=== PATIENT | female | born 1985 | race Caucasian/White ===

== ENCOUNTER → 2023-02-03 08:04 | Outpatient (CLI) | payer OTHER, SELFPAY ==
[2023-02-03 15:29] LABS: Urine N gonorrhoeae NOT DETECTED
[2023-02-03 15:52] LABS: Urine Chlamydia NOT DETECTED
== END ==
PROVIDERS: Visit Provider Obstetrics & Gynecology
DX: Z34.81 Encounter for supervision of other normal pregnancy, first trimester (principal); Z3A.13 13 weeks gestation of pregnancy
CPT/HCPCS: 87491; 87591

== ENCOUNTER → 2023-02-03 08:28 | Outpatient (CLI) | payer OTHER, SELFPAY ==
[2023-02-03 09:53] LABS: Add Manual Diff / Slide Review NO; Basophils Absolute Auto 0 /uL (0-100); Basophils Percent Auto 0.4 % (0-2); Eosinophils Absolute Auto 100 /uL (0-450); Hematocrit 35.7 % (36-46); Hemoglobin 12.6 g/dL (12.0-16.0); Lymphocytes Absolute Auto 1700 /uL (1100-4500); Mean Corpuscular HGB Conc 35.2 % (30-36); Mean Corpuscular Hemoglobin 31.1 PG (26-34); Mean Corpuscular Volume 88.3 fL (80-100); Monocytes Absolute Auto 500 /uL (0-900); Monocytes Percent Auto 5.3 % (3-14); Neutrophils Absolute Auto 7700 /uL (1500-7000); Neutrophils Percent Auto 76.3 % (50-75); Platelet Count 233 X10^3/uL (150-400); Red Blood Cell Count 4.05 X10^6/uL (4.0-5.2); Red Cell Distribution Width 13.6 % (11.6-14.8); White Blood Cell Count 10.1 X10^3/uL (4.5-11.0)
[2023-02-03 10:48] LABS: Hepatitis B Surface Antigen NEGATIVE s/c (NEGATIVE)
[2023-02-03 10:49] LABS: Rubella Antibody IgG 42.9 IU/mL (>15)
[2023-02-03 11:01] LABS: HIV 1 & 2 Ab/Ag 4th Gen Combo NEGATIVE (NEGATIVE); Hep C Virus Ab w/Reflex Quant NEGATIVE s/c (NEGATIVE)
[2023-02-04 09:01] LABS: RPR Screen Non Reactive (Non Reactive)
[2023-02-04 13:39] LABS: Varicella IgG Antibody 1769 index (Immune >165)
== END ==
PROVIDERS: Specialist; Referring Provider Obstetrics & Gynecology; Visit Provider Obstetrics & Gynecology
DX: O09.511 Supervision of elderly primigravida, first trimester (principal); Z3A.13 13 weeks gestation of pregnancy
CPT/HCPCS: 36415; 80055; 86787; 86803; 86850; 86900; 86901; 87389; 87491; 87591

== ENCOUNTER → 2023-03-03 11:32 | Outpatient (CLI) | payer OTHER, SELFPAY ==
[2023-03-05 21:50] LABS: AFP Value 57.8 ng/mL (.); Gest Age on Col Date 17.9 weeks (.); Gestational Age EDD (.); Insulin Dep Diabetes No (.); OSBR Risk 1IN 3920 (.); Results Report (.); Test Results *Screen Negative* (.)
== END ==
PROVIDERS: Referring Provider Obstetrics & Gynecology; Visit Provider Obstetrics & Gynecology
DX: Z34.82 Encounter for supervision of other normal pregnancy, second trimester (principal); Z3A.17 17 weeks gestation of pregnancy
CPT/HCPCS: 36415; 82105

== ENCOUNTER → 2023-03-16 10:09 | Outpatient (CLI) | payer OTHER, SELFPAY ==
--- NOTE | 2023-03-16 10:10 | DI.US.S_ITS ---
PROCEDURE: US OB >= 14 WEEKS FETUS INDICATIONS: ANATOMY SCAN OUTSIDE/PRIOR DATING DATA: Last menstrual period (LMP): Unknown. LMP-based estimated date of delivery (PETE): Not available First dating scan (date and location): Performed at an outside location and not available at the time of this dictation Estimated date of delivery (PETE) from first dating scan: August 05, 2023. TECHNIQUE: Real-time scanning was performed of the fetus, with image documentation and biometric measurements. COMPARISON: None. FINDINGS: General: A single living intrauterine gestation is present. Presentation: Vertex. Placenta: Placental position is anterior. The edge of the placenta abuts the cervical os. Amniotic fluid index: 14.5 cm, normal range is 5-24 cm. Single deepest vertical pocket is 5.0 cm. heart rate: 141 beats per minute. Maternal cervical canal: 6 cm long. Normal lower limit is 2.5 cm. biometrics: Biparietal diameter: 4.5 cm, 19 weeks, 4 days Head circumference: 17.2 cm, 19 weeks, 5 days Abdominal circumference: 15.0 cm, 19 weeks, 2 days Femur length: 3.2 cm, 19 weeks, 6 days Clinically estimated gestational age: 19 weeks, 5 days Composite gestational age from present scan: 19 weeks, 6 days Estimated weight and percentile: 362 g, 62% Anatomic survey: Neuro: Ventricles are non-dilated at less than 10 mm. Cisterna magna is normal at 3-11 mm. Cerebellum is normal in size and morphology. Nuchal skin fold: Normal at less than 6 mm between 14-21 weeks gestational age. Face: Nose and lips, facial profile are normal. Spine: No evidence for spina bifida. Heart: 4-chambered heart is present, with normal ventricular outflow tracts. Diaphragm: Diaphragm is intact. Stomach: Left-sided stomach is present. Kidneys: No hydronephrosis. Normal is less than 5 mm in 2nd trimester, less than 7 mm in 3rd trimester. Cord: 3-vessel cord has orthotopic insertion. Bladder: Normal in size. Extremities: All 4 extremities identified. IMPRESSION: 1. Single live intrauterine gestation with a composite gestational age of 19 weeks, 6 days which is concordant with dates by initial scan (not available at the time of this dictation). 2. Marginal placenta placenta previa. Continued sonographic follow-up recommended. We strive to produce accurate, complete, and clear reports of imaging services. To assist us in improving patient care, this report was composed using standard report templates and voice recognition software. Therefore, it may contain abnormal punctuation, insertions and/or omissions. Occasional wrong-word or sound-alike substitutions may occur. Though we review the report and make efforts to correct it, we do recommend that the report be read carefully in proper context to recognize any text inaccuracies. Dictated by: Violet Avila M.D. on 03/16/2023 at 12:00 Approved by: Violet Avila M.D. on 03/16/2023 at 12:06
== END ==
PROVIDERS: Referring Provider Obstetrics & Gynecology; Visit Provider Obstetrics & Gynecology
DX: O44.22 Partial placenta previa NOS or without hemorrhage, second trimester (principal); Z3A.20 20 weeks gestation of pregnancy
CPT/HCPCS: 76811

== ENCOUNTER → 2023-04-22 09:33 | Outpatient (CLI) | payer OTHER, SELFPAY ==
[2023-04-22 12:37] LABS: Hematocrit 31.7 % (36-46); Hemoglobin 11.1 g/dL (12.0-16.0)
[2023-04-22 12:57] LABS: GTT (PREG) 1 Hour PP 50gm Dose 126 mg/dL (76-139)
== END ==
PROVIDERS: Referring Provider Obstetrics & Gynecology; Visit Provider Obstetrics & Gynecology
DX: Z34.82 Encounter for supervision of other normal pregnancy, second trimester (principal); Z3A.26 26 weeks gestation of pregnancy
CPT/HCPCS: 82950; 85014; 85018

== ENCOUNTER → 2023-05-26 11:22 | Outpatient (CLI) | payer OTHER, SELFPAY | PROVIDERS: Visit Provider Obstetrics & Gynecology | DX: Z34.90 Encounter for supervision of normal pregnancy, unspecified, unspecified trimester (principal) | CPT/HCPCS: 87086 ==

== ENCOUNTER → 2023-06-03 10:10 | Outpatient (CLI) | payer OTHER, SELFPAY ==
--- NOTE | 2023-06-03 10:30 | DI.US.S_ITS ---
PROCEDURE: US OB FOLLOW UP INDICATIONS: Marginal placenta previa on earlier scan OUTSIDE/PRIOR DATING DATA: Last menstrual period (LMP): Unknown. LMP-based estimated date of delivery (PETE): Unknown. First dating scan (date and location): Unknown Estimated date of delivery (PETE) from first dating scan: 08/05/2023. The calculations are made using the ultrasound PETE of 08/05/2023. TECHNIQUE: Real-time scanning was performed of the fetus, with image documentation. Endovaginal scanning: Not performed COMPARISON: [facility], US OB >= 14 WEEKS FETUS, 03/16/2023, 10:21. FINDINGS: A single living intrauterine gestation is present. Presentation: Vertex. Placenta: Placental position is anterior, without previa. Lower placental edge is now greater than 6 centimeters from the internal cervical os. Amniotic fluid index: 11.5 cm, normal range is 5-24 cm. Single deepest vertical pocket is 4.4 cm. heart rate: 149 beats per minute. Maternal cervical canal: 4.7 cm long. Normal lower limit is 2.5 cm. Estimated gestational age from initial scan: 31 weeks 0 days. IMPRESSION: 1. Single live intrauterine consistent with 31 weeks and 0 days. 2. No evidence of placenta previa, the lower placental edge is now greater than 6 centimeters from the internal cervical os. Dictated by: Brent Drummond M.D. on 06/03/2023 at 11:11 Approved by: Brent Drummond M.D. on 06/03/2023 at 11:14
== END ==
PROVIDERS: Referring Provider Obstetrics & Gynecology; Visit Provider Obstetrics & Gynecology
DX: O44.23 Partial placenta previa NOS or without hemorrhage, third trimester (principal); Z3A.31 31 weeks gestation of pregnancy
CPT/HCPCS: 76816

== ENCOUNTER → 2023-07-03 14:10 | Outpatient (CLI) | payer OTHER, SELFPAY ==
[2023-07-04 15:47] LABS: Strep Grp B PCR POS for Grp B Strep
== END ==
PROVIDERS: Visit Provider Obstetrics & Gynecology
DX: Z34.83 Encounter for supervision of other normal pregnancy, third trimester (principal); Z3A.35 35 weeks gestation of pregnancy
CPT/HCPCS: 87653

== ENCOUNTER 2023-07-06 16:32 | Outpatient (CLI) | payer OTHER, SELFPAY ==
--- NOTE | 2023-07-06 17:15 | P.TNLD_ITS ---
Visit Information Visit Information Date of evaluation: 07/06/23 Primary OB Provider: Virgil Heath On-call OB Provider: Carolyn Clay Reason for Evaluation: Yes rule out labor [facility] Medical History (Updated 07/06/23 @ 17:16 by Carolyn Clay MD) Headache Anemia Polycystic kidney disease Hemorrhoid (~2012) Cardiac arrhythmia (~2009) Ovarian cyst A-fib (~2009) Infertility (~2015) Surgical History (Updated 01/29/23 @ 08:21 by Deepa Lewis RN) History of removal of skin mole Family History (Updated 03/02/23 @ 21:37 by Gerri Garay) Mother Polycystic kidney disease Father A-fib Hyperlipidemia Grandfather Heart attack Family estrangement Hyperlipidemia Family/Other Heart attack Grandfather Lung cancer Asthma Hypertension Low platelet count Hyperlipidemia Grandmother Hyperlipidemia Hypertension Polycystic kidney disease Grandmother Hyperlipidemia Hypertension Osteoporosis Social History marital status: number of children: 2 household members: spouse and children lives independently: Yes caregiver/support person: Yes housing: house pets and animals: Yes (1 dog) education level: college occupational status: unemployed current occupational exposures/hazards: No special lopez needs: No travel history: recent seatbelt use: always helmet use: Yes water heater temp set < 120 deg: Yes working smoke detector in home: Yes fire extinguisher in home: Yes carbon monox detector in home: Yes firearms in home: Yes firearms unloaded and locked: Yes do you feel safe at home: Yes Smoking Status: Never smoker second hand exposure: No alcohol intake: former substance use type: does not use during the past year weight has: remained stable well-balanced diet: daily or most days daily servings fruits/ve or more times/day caffeine: Yes (1-2 cups coffee in AM) Type(s) of exercise: walking and running Evaluation Evaluation Baseline heart rate: 140 Variability: Moderate (11-25) monitor accelerations: Present Monitor Decelerations: Absent Category of Tracing: Reactive Status: Category l Non-invasive Membranes Rupture Test: negative Diagnosis, Plan/Disposition Final Diagnosis (1) 36 weeks gestation of : Status: Acute (2) False labor: Status: Acute Plan/Disposition Plan: Patient reassured not ruptured and not in labor. Patient is sent home to be followed up in a routine OB visit OB Disposition: home
== END 2023-07-06 17:33 | disposition home or self-care (01) ==
LOC: OB 07-07 10:55
PROVIDERS: Referring Provider Specialist; Visit Provider Specialist
DX: O47.03 False labor before 37 completed weeks of gestation, third trimester (principal); Z3A.36 36 weeks gestation of pregnancy
CPT/HCPCS: 59025; 84112; G0378; G0379

== ENCOUNTER 2023-07-29 19:13 | Inpatient (IN) | payer OTHER, SELFPAY ==
--- NOTE | 2023-07-29 20:31 | PM.OBHP.1 ---
OB HPI Date/Time Date of admission: 07/29/23 Date Patient Seen: 07/29/23 Time Patient Seen: 20:31 History of Present Condition Chief complaint: OB : 6 Para: 2 Estimated Date of Delivery: 08/05/23 Estimated Gestational Age (weeks): 40 Narrative: Josefina Rose is a 38 year old admitted now at 39+ 0 weeks gestational age for cervical ripening/induction due to advanced maternal age. The patient's course has been uneventful with solid early dating and appropriate milestones throughout. GBS is positive. Indications Indication for induction OB: other (Advanced maternal age) History of Present care: good care Dating criteria: LMP confirmed by 1st trimester US Ultrasounds: normal 1st trimester US and normal mid trimester US Obstetrical complications: none Medical complications: none Preadmission Labs Blood type: A (+) positive -: Antibody screen: negative, GBS status: positive, HBsAG: negative, HIV: negative and RPR/VDLR: negative -: Chlamydia screen: not detected and Gonorrhea screen: not detected -: Rubella: immune and Varicella: immune HCT: 31.0 HCAB: negative PAP: Normal Quad screen: Normal (AFP testing negative) Cell-free DNA: Low risk female 1 hr GTT: 126 Prior (ies) History: x2 Evaluation Evaluation Baseline heart rate: 145 Variability: Moderate (11-25) monitor accelerations: Present Monitor Decelerations: Absent Uterine Contraction Intensity: Mild Category of Tracing: Reactive Status: Category l Dilation (cm): 1 Effacement (%): 75 Dilation: 1-2 cm Effacement: 60-70% station: -2 Position of cervix: posterior Consistency: medium Fung score: 5 PFSH Medical History (Updated 07/22/23 @ 10:27 by Virgil Heath MD) Headache Anemia Polycystic kidney disease Hemorrhoid (~2012) Cardiac arrhythmia (~2009) Ovarian cyst A-fib (~2009) Infertility (~2015) Surgical History (Updated 01/29/23 @ 08:21 by Deepa Lewis RN) History of removal of skin mole Family History (Updated 03/02/23 @ 21:37 by Gerri Garay) Mother Polycystic kidney disease Father A-fib Hyperlipidemia Grandfather Heart attack Family estrangement Hyperlipidemia Family/Other Heart attack Grandfather Lung cancer Asthma Hypertension Low platelet count Hyperlipidemia Grandmother Hyperlipidemia Hypertension Polycystic kidney disease Grandmother Hyperlipidemia Hypertension Osteoporosis Social History marital status: number of children: 2 household members: spouse and children lives independently: Yes caregiver/support person: Yes housing: house pets and animals: Yes (1 dog) education level: college occupational status: unemployed current occupational exposures/hazards: No special lopez needs: No travel history: recent seatbelt use: always helmet use: Yes water heater temp set < 120 deg: Yes working smoke detector in home: Yes fire extinguisher in home: Yes carbon monox detector in home: Yes firearms in home: Yes firearms unloaded and locked: Yes do you feel safe at home: Yes Smoking Status: Former smoker second hand exposure: No alcohol intake: former substance use type: does not use during the past year weight has: remained stable well-balanced diet: daily or most days daily servings fruits/ve or more times/day caffeine: Yes (1-2 cups coffee in AM) Type(s) of exercise: walking and running Meds Home Medications and Allergies Home Medications Medication Instructions Recorded Confirmed Type vitamin-ferrous sulfate tab PO 01/29/23 07/22/23 History 27 mg iron-folic acid 0.8 mg tablet Allergies Allergy/AdvReac Type Severity Reaction Status Date / Time No Known Drug Allergies Allergy Unverified 07/22/23 09:51 Review of Systems Review of Systems Narrative: Problem-specific ROS positives included in HPI OB Exam HENMI Head: normal to inspection, normocephalic and atraumatic Eyes General: appearance normal, both eyes and all related structures Resp Effort & Inspection: normal respiratory effort and able to speak in complete sentences Auscultation: clear to auscultation bilaterally Cardio Rate: regular rate Rhythm: regular rhythm Heart Sounds: S1 normal, S2 normal and no murmurs Extremities Lower extremity: Yes normal to inspection GI Inspection: normal to inspection Palpation: Yes soft and Yes no hepatosplenomegaly Uterus Location (Fundal Height): 37 Estimated Weight (lbs): 7 Objective Labs 07/29/23 20:45 Assessment and Plan Assessment and Plan Assessment and Plan narrative: ASSESSMENT 1. Intrauterine , 39+ 0 weeks gestational age 2. Advanced maternal age 3. GBS positive status PLAN 1. Admit for cervical ripening and delivery 2. See admission orders
[2023-07-29] MEDS: miSOPROStoL 25 MCG TABLET 50 MCG PO (21:07)
[2023-07-29 21:18] LABS: Add Manual Diff / Slide Review NO; Basophils Absolute Auto 200 /uL (0-100); Basophils Percent Auto 2.2 % (0-2); Eosinophils Absolute Auto 100 /uL (0-450); Eosinophils Percent Auto 1.4 % (2-4); Hematocrit 30.1 % (36-46); Hemoglobin 10.4 g/dL (12.0-16.0); Lymphocytes Absolute Auto 2300 /uL (1100-4500); Lymphocytes Percent Auto 21.9 % (25-40); Mean Corpuscular HGB Conc 34.6 % (30-36); Mean Corpuscular Volume 86.7 fL (80-100); Monocytes Absolute Auto 700 /uL (0-900); Monocytes Percent Auto 6.9 % (3-14); Neutrophils Absolute Auto 7100 /uL (1500-7000); Neutrophils Percent Auto 67.6 % (50-75); Platelet Count 237 X10^3/uL (150-400); Red Blood Cell Count 3.47 X10^6/uL (4.0-5.2); Red Cell Distribution Width 13.4 % (11.6-14.8); White Blood Cell Count 10.6 X10^3/uL (4.5-11.0)
[2023-07-29 21:32] VITALS: BP 115/62
[2023-07-30] MEDS: miSOPROStoL 25 MCG TABLET 50 MCG PO (03:08)
[2023-07-30] MEDS: LACTATED RINGERS 1,000 ML 100 ML IV (05:30)
[2023-07-30] MEDS: AMPICILLIN 1,000 MG in SODIUM CHLORIDE 0.9% 100 ML 200 MG IV (05:35)
[2023-07-30] MEDS: fentaNYL 100 MCG/2 ML INJ 50 MCG IV (06:12)
--- NOTE | 2023-07-30 07:09 | P.PCN_ITS ---
Regional Block Pre-procedure Procedure: Continuous Lumbar Epidural for L&D ASA Class: II Labs: Hct 30.1 % (36-46) L 07/29/23 20:45 Plt Count 237 X10^3/uL (150-400) 07/29/23 20:45 Medications: Current Medications Generic Name Dose Route Start Last Admin Trade Name Freq PRN Reason Stop Dose Admin Carboprost Tromethamine 250 mcg 07/29/23 20:25 Carboprost 250 Mcg/Ml Ampul IM Q90M PRN Bleeding Diphenhydramine HCl 25 mg 07/30/23 07:03 Diphenhydramine 50 Mg/Ml Vial IV Q10M PRN Pruritis Ephedrine Sulfate 10 mg 07/30/23 07:03 Ephedrine 50 Mg/Ml Vial IV Q5M PRN Blood pressure decrease more than 20% of baseline. Fentanyl 50 mcg 07/29/23 20:27 07/30/23 06:12 Fentanyl 100 Mcg/2 Ml Inj IV 50 mcg Q1H PRN Administration Pain, Moderate (4-6) Oxytocin/Lactated Ringer's 30 unit in 500 mls @ 200 mls/hr 07/29/23 20:25 Oxytocin Premix IV CONT PRN Bleeding Protocol Tranexamic Acid 1,000 mg/ 100 mls @ 200 mls/hr 07/29/23 20:25 Sodium Chloride IV NOW PRN Bleeding Ampicillin Sodium 1,000 mg/ 100 mls @ 200 mls/hr 07/30/23 01:00 07/30/23 05:35 Sodium Chloride IV 200 mls/hr Q4H REX Administration Lactated Ringer's 1,000 mls @ 100 mls/hr 07/29/23 20:30 07/30/23 05:30 Lactated Ringers IV 100 mls/hr CONT REX Administration FENT 2MCG/ML BUPIV 0.125% EPI 200 mcg in 100 mls @ 10 mls/hr 07/30/23 07:15 Fentanyl/Bupiv/Ns 2mcg/Ml - 0.125% EPIDURAL CONT REX Lidocaine HCl 20 ml 07/29/23 20:25 Lidocaine 1% 20 Ml INJ INTRA-OP PRN Post Delivery Methylergonovine Maleate 0.2 mg 07/29/23 20:25 Methylergonovine 0.2 Mg Tablet PO Q6HR PRN Heavy Bleeding Methylergonovine Maleate 0.2 mg 07/29/23 20:25 Methylergonovine 0.2 Mg/Ml Vial IM NOW PRN Bleeding Misoprostol 800 mcg 07/29/23 20:25 Misoprostol 200 Mcg Tablet MS NOW PRN Bleeding Misoprostol 400 mcg 07/29/23 20:25 Misoprostol 200 Mcg Tablet SL NOW PRN Bleeding Misoprostol 50 mcg 07/29/23 20:30 07/30/23 03:08 Misoprostol 25 Mcg Tablet PO 50 mcg Q6H REX Administration Nalbuphine HCl 2.5 mg 07/30/23 07:03 Nalbuphine 20 Mg/Ml Ampul IV Q10M PRN Pruritis Naloxone HCl 0.2 mg 07/29/23 20:25 Naloxone 0.4 Mg/Ml Vial IV Q2MIN PRN Opiate Reversal Ondansetron HCl 4 mg 07/29/23 20:27 Ondansetron 4 Mg/2 Ml Inj IV Q4HR PRN Nausea And Vomiting Oxytocin 10 unit 07/29/23 20:25 Oxytocin 10 Unit/Ml Vial IM NOW PRN Bleeding Zolpidem Tartrate 5 mg 07/29/23 20:30 Zolpidem 5 Mg Tablet PO BEDTIME PRN Sleep Allergies: Allergies Allergy/AdvReac Type Severity Reaction Status Date / Time No Known Drug Allergies Allergy Unverified 07/22/23 09:51 Procedure Insertion date: 07/30/23 Insertion time: 06:30 Prep/Local: 1% lidocaine (Prep with CHG) Interspace: L3/4 Patient position: sitting Needle: 18 gauge Hustead Loss of resistance with: saline SHAWNA at (cm): 7 Catheter placed at SKIN (cm): 12 Insertion: No CSF, No Blood, No Paresthesia with insertion, No Paresthesia with injection and No Test dose reaction Initial Medications TEST DOSE time: 06:31 BOLUS DOSE time: 06:36 BOLUS DOSE med: other (Lidocaine 1.5% 2cc + Lidocaine 1% 2 cc) Infusion Initial rate (mL/hr): 10 Subsequent interventions: Precedex 25 mcg + Marcaine 0.25 5 cc + Saline 5 cc at 0700 Post-procedure Anesthesia date START: 07/30/23 Anesthesia time START: 06:12 Anesthesia date END: 07/30/23 Anesthesia time END: 06:43 Post-procedure Anesthesia Assessment: Yes CV function: HR/BP stable, Yes Resp f unction: RR/sat/airway adequate, Yes Post-op hydration adequate, Yes Pain control adequate, Yes Nausea & vomiting absent, Yes Temperature > 36 C, Yes Mental status appropriate and Yes Anesthesia complications
--- NOTE | 2023-07-30 07:28 | PM.OBPRVD ---
Events: Labor Induction Labor & Delivery Delivery date: 07/30/23 Intrapartal Events: None Cervical ripening method: per misoprostal protocol Induction method: none Delivery monitor: external FHT and external uterine Route of delivery: Episiotomy description: None L&D Laceration Description: Labial (Superficial, bilateral) Estimated blood loss (mL): 100 Anesthesia Type: Epidural Complications: None Narrative: Following a precipitous 2nd stage, the patient delivered spontaneously assisted by RN's in spontaneous vaginal delivery immediately prior to my arrival to the delivery suite. Her infant is a viable female with Apgars of 9/9 and a weight of 3 3-5 g (7 lb 5.3 oz). Skin to skin contact was initiated immediately following delivery of the infant and delayed cord clamping performed once the umbilical cord had stopped pulsation. Once the umbilical cord was doubly clamped cut, a cord blood sample was obtained for routine studies. The placenta was delivered easily with gentle cord traction and suprapubic countertraction. Inspection of the placenta showed it to be intact with an eccentric but non-marginal insertion of a three-vessel cord. Following delivery of the placenta intravenous Pitocin was administered with prompt control of post delivery bleeding achieved easily. Inspection of the perineum showed very superficial bilateral labial tears which did not require reapproximation were closure with suture. Sponge, instrument, and needle counts were correct at the conclusion of the delivery process which was well tolerated by both mother and infant. [place] Baby 1: gender: Female Presentation: vertex Position: Left Occiput Anterior Placenta delivery description: Spontaneous Cord Vessel Description: 3 Vessels score (1 min): 9 score (5 min): 9 weight: 7 lb 5.286 oz Plan for aftercare: Routine care
[2023-07-30] MEDS: ACETAMINOPHEN 325 MG TABLET 650 MG PO (18:15)
[2023-07-31] MEDS: ACETAMINOPHEN 325 MG TABLET 650 MG PO ×2 (00:03→06:05)
[2023-07-31] MEDS: IBUPROFEN 600 MG TABLET PO ×2 (00:04→06:05)
[2023-07-31 05:13] LABS: Add Manual Diff / Slide Review NO; Basophils Absolute Auto 100 /uL (0-100); Basophils Percent Auto 1.1 % (0-2); Eosinophils Absolute Auto 100 /uL (0-450); Eosinophils Percent Auto 0.7 % (2-4); Hemoglobin 11.1 g/dL (12.0-16.0); Lymphocytes Absolute Auto 3100 /uL (1100-4500); Lymphocytes Percent Auto 27.1 % (25-40); Mean Corpuscular HGB Conc 33.6 % (30-36); Mean Corpuscular Hemoglobin 29.9 PG (26-34); Monocytes Absolute Auto 900 /uL (0-900); Monocytes Percent Auto 7.7 % (3-14); Neutrophils Absolute Auto 7300 /uL (1500-7000); Neutrophils Percent Auto 63.4 % (50-75); Platelet Count 221 X10^3/uL (150-400); Red Cell Distribution Width 13.6 % (11.6-14.8); White Blood Cell Count 11.6 X10^3/uL (4.5-11.0)
--- NOTE | 2023-07-31 10:04 | PM.OBDS.1 ---
Discharge Providers Provider Date of admission: 07/29/23 19:13 Discharge Date: 07/31/23 Primary care physician: Jessica WALKER Provider Consults: 07/29/23 20:25 Consult to Anesthesiology Urgent Comment: Consulting Provider: Virgil Heath Reason for consultation: Epidural Has provider been notified: No 07/31/23 07:25 Consult to [employer] Panels Trimmer Routine Comment: Discharge provider: Virgil Heath MD Summary Hospital Course Date Patient Seen: 07/31/23 Time Patient Seen: 10:04 Diagnoses: Intrauterine gestation, 39+ 1 weeks gestational, delivered by spontaneous vaginal Advanced maternal age GBS positive status Hospital Course: Josefina was admitted on the evening of 07/29/2023 for cervical ripening at 39 weeks gestational age due to advanced maternal age. She proceeded to enter active labor after administration of oral misoprostol and had a continuous lumbar epidural placed. She delivered spontaneously on the morning of 07/30/2023 a viable female infant with Apgars of 9/9 and a weight of 7 lb 5.3 oz. following delivery both mother and baby have done extremely well with the mother experiencing prompt return of bowel and bladder function, she is ambulating independently, tolerating regular diet, and her pain is well relieved with oral pain medications. She will be discharged at this time in an afebrile normotensive condition to home with instructions to resume all preadmission medications. She will use [id number] Tylenol and/or ibuprofen as needed for pain relief and follow-up will be in 6 weeks. Peripartum Data Laceration Description: Labial and Superficial (Bilateral labial abrasions) Episiotomy description: None Procedures: Continuous lumbar epidural anesthesia complications: none 1: Gender: Female Status at Discharge Cognitive/behavioral status at discharge: oriented Functional status at discharge: independent ambulation Overall status at discharge: patient is progressing back to baseline Time Spent with Patient Time attestation: Total time spent providing and/or coordinating discharge services: Objective Labs 07/31/23 04:55 Labs: Laboratory Results - last 24 hr 07/31/23 04:55 WBC 11.6 H RBC 3.70 L Hgb 11.1 L Hct 33.0 L MCV 89.0 MCH 29.9 MCHC 33.6 RDW 13.6 Plt Count 221 Neut % (Auto) 63.4 Lymph % (Auto) 27.1 [place] % (Auto) 7.7 Eos % (Auto) 0.7 L Baso % (Auto) 1.1 Neut # (Auto) 7300 H Lymph # (Auto) 3100 [place] # (Auto) 900 Eos # (Auto) 100 Baso # (Auto) 100 Exam Const General: cooperative and comfortable Nutritional Appearance: average body habitus Orientation: alert and oriented x3 HENMT Head: normal to inspection, atraumatic and abrasion Ears: hearing grossly normal bilaterally Face and sinus: face symmetric Eyes General: appearance normal, both eyes and all related structures Conjunctivae: conjunctivae normal Sclera: sclerae normal EOM: EOM intact bilaterally Neck Neck: normal visual inspection Resp Effort & Inspection: normal respiratory effort and able to speak in complete sentences GI Inspection: normal to inspection Palpation: soft and no hepatosplenomegaly External Female Exam: other (No significant bleeding noted) Extrem General: no calf tenderness Psych Appearance: grossly normal Mental Status: mental status grossly normal Speech and Movement: speech and movement normal Mood: congruent mood Affect: normal affect Attitude: cooperative Thought Process: normal Thought Content: normal Judgment: judgment good Discharge Plan Discharge Plan Patient Disposition: Home Provider Discharge Comment: Please review the written discharge instructions you received when you were discharged from the hospital. Your follow-up appointment will be scheduled for 6 weeks after delivery and I look forward to seeing you then. If however in the meanwhile you have any issues, concerns, or questions, please contact me either through the office phone at [phone], or via the patient portal. Discharge orders & Medications Prescriptions: Continued vit-ferrous sulfat-FA 27 mg iron- 0.8 mg tablet PO Follow up/Referrals: Virgil Heath MD [Physician] - ( Appt w/ Dr. Heath: September 08 @ 2pm (please check in at 1:45pm)) Discharge Health Status Multidrug resistant organism: No MDRO Diet/Activity/Treatments Diet: Diet as Tolerated Activity: As tolerated Other treatments: [id number] Tylenol and/or ibuprofen may be used as needed for pain relief. [id number] stool softeners and/or MiraLax may be used as needed for constipation. Skin/Wound/Dressing Care Report to your healthcare provider any signs of infection, such as:: chills, fever, increased pain, unusual drainage and unusual redness Dressing: N/A Visit Report/Discharge Packet Instructions: [facility] for Labor and Delivery, Vaginal , DI for and Nipple Soreness Stand Alone Forms: Discharge: Care Discharge Data Primary Care Provider: Jessica Murillo
== END 2023-07-31 10:48 | disposition home or self-care (01) | DRG 807 ==
PROVIDERS: Admitting Provider Obstetrics & Gynecology; Referring Provider Obstetrics & Gynecology; Visit Provider Obstetrics & Gynecology
DX: O99.824 Streptococcus B carrier state complicating childbirth (principal); Z37.0 Single live birth; Z3A.39 39 weeks gestation of pregnancy
CPT/HCPCS: 36415; 59050; 59200; 59400; 85025; 86850; 86870; 86900; 86901; G0379; J0290; J3010